=== PATIENT | male | born 1960 | race Caucasian/White ===

== ENCOUNTER 2025-02-07 10:55 | Inpatient (IN) | payer OTHER ==
[~2025-02-07] VITALS: Ht 177.8 cm; Wt 100.0 kg
[2025-02-07 11:18] LABS: Basophils # (auto) 0 10 ^3/uL (0-0.2); Basophils % (auto) 0.5 % (0.0-2.0); Eosinophils # (auto) 0.1 10 ^3/uL (0-0.8); Eosinophils % (auto) 1.6 % (0.0-7.0); Hemoglobin 14.6 g/dL (13.5-17.5); Lymphocytes # (auto) 0.9 10 ^3/uL (0.4-5.4); Lymphocytes % (auto) 10.7 % (10.0-50.0); Mean Corpuscular Hemoglobin 31.9 pg (28.0-32.0); Mean Corpuscular Hgb Conc. 35.6 g/dL (32.0-36.0); Mean Corpuscular Volume 89.4 fL (80.0-100.0); Monocytes % (auto) 11.8 % (0.0-12.0); Neutrophils # (auto) 6.6 10 ^3/uL (1.6-8.6); Neutrophils % (auto) 75.4 % (37.0-80.0); Nucleated Red Blood Cells % 0.1 %; Platelet Count (auto) 231 10^3/uL (140-450); Red Blood Cells 4.59 10^6/uL (4.5-5.90); Red Cell Distribution Width 12.6 % (11.8-14.3); White Blood Cell 8.8 10^3/uL (4.4-10.8)
--- NOTE | 2025-02-07 11:24 | ED.PDOC ---
GI ASSESSMENT HPI Comments 64 y/o M, presents to the ED for CC of flu-like symptoms. Patient states, he has been experiencing Flu-like symptoms which include nausea, sweats, chills and headache onset, last night (02/06/21). Patient denies change in diet, recent travel, fever, diarrhea, or vomiting. No other symptoms or modifying factors present at this time. Chief Complaint: Nausea/Vomiting Time Seen by MD: 11:18 Reviewed Notes: Nurses Notes, Medications, Allergies Allergies: Coded Allergies: NO KNOWN ALLERGIES (Unverified , 12/15/10) Information Source: Patient Mode of Arrival: Ambulatory Timing: Days Duration: Since onset Prehospital treatment: None Quality: None Vomitus: None Stool: Normal Severity: Moderate Recent: None Recent Hx of: None Pain Location: None Modifying Factors: Nothing Associated sign and symptoms: Nausea Past Medical History PAST MEDICAL HISTORY: Cancer Surgical History: Denies all surgeries Family History Family History: Unknown, Family hx of DM, Family hx of Cancer Social History Smoker: Non-Smoker Alcohol: Denies ETOH Use Drugs: Denies Drug Use Lives In: Home Constitutional: denies: chills, diaphoresis, fatigue, fever, malaise, sweats, weakness, others EENTM: denies: blurred vision, double vision, ear bleeding, ear discharge, ear drainage, ear pain, ear ringing, eye pain, eye redness, hearing loss, mouth pain, mouth swelling, nasal discharge, nose bleeding, nose congestion, nose pain, photophobia, tearing, throat pain, throat swelling, voice changes, others Respiratory: denies: cough, hemoptysis, orthopnea, SOB at rest, shortness of breath, SOB with excertion, stridor, wheezing, others Cardiovascular: denies: chest pain, dizzy spells, diaphoresis, Dyspnea on exertion, edema, irregular heart beat, left arm pain, lightheadedness, palpitations, PND, syncope, others Gastrointestinal: reports: nausea; denies: abdomen distended, abdominal pain, blood streaked bowels, constipated, diarrhea, dysphagia, difficulty swallowing, hematemesis, melena, poor appetite, poor fluid intake, rectal bleeding, rectal pain, vomiting, others Genitourinary: denies: burning, dysuria, flank pain, frequency, hematuria, incontinence, penile discharge, penile sore, pain, testicle pain, testicle swelling, urgency, others Neurological: reports: headache; denies: dizziness, fainting, left sided numbness, left sided weakness, numbness, paresthesia, pre-existing deficit, right sided numbness, right sided weakness, seizure, speech problems, tingling, tremors, weakness, others Musculoskeletal: denies: back pain, gout, joint pain, joint swelling, muscle pain, muscle stiffness, neck pain, others Integumetry: denies: bruises, change in color, change in hair/nails, dryness, laceration, lesions, lumps, rash, wounds, others Allergic/Immunocompromised: denies: Difficulty Healing, Frequent Infections, Hives, Itching, others Hematologic/Lymphatic: denies: anemia, blood clots, easy bleeding, easy bruising, swollen glands, others Endocrine: denies: excessive hunger, excessive sweating, excessive thirst, excessive urination, flushing, intolerance to cold, intolerance to heat, unexplained weight gain, unexplained weight loss, others Psychiatric: denies: anxiety, bipolar disorder, depression, hopeless, panic disorder, schizophrenia, sleepless, suicidal, others All Other Systems: Reviewed and Negative Physical Exam General Appearance: Moderate Distress HEENT: Normal ENT Inspection, Pharynx Normal, TMs Normal Neck: Full Range of Motion, Non-Tender, Normal, Normal Inspection Respiratory: Chest Non-Tender, Lungs Clear, No Accessory Muscle Use, No Respiratory Distress, Normal Breath Sounds Cardiovascular: No Edema, No JVD, No Murmur, No Gallop, Normal Peripheral Pulses, Regular Rate/Rhythm Breast Exam: Deferred Gastrointestinal: Diffuse, No Organomegaly, No Pulsatile Mass, Normal Bowel Sounds, Soft, Tenderness Genitalia: Deferred Pelvic: Deferred Rectal: Deferred Extremities: No calf tenderness, Normal capillary refill, Normal inspection, Normal range of motion, Non-tender, No pedal edema Musculoskeletal : Apperance: Normal Neurologic: Alert, 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 Was a procedure done?: No GI differential Dx Differential Diagnosis: Pancreatitis, Electrolyte Imbalance, Bacterial, Viral, Other (COVID, INFLUENZA, PNEUMONIA) X-Ray, Labs, Meds, VS Vital Signs Date Time Temp Pulse Resp B/P (MAP) Pulse Ox O2 Delivery O2 Flow Rate FiO2 02/07/25 12:55 99.4 67 18 133/77 (95) 95 99.4 02/07/25 12:12 72 02/07/25 11:06 98.4 70 20 133/80 (97) 96 98.4 02/07/25 11:06 72 Lab Test 02/07/25 13:09 02/07/25 12:13 02/07/25 12:08 02/07/25 11:08 Range/Units Troponin I High Sensitivity < 3 L < 3 L </=54 ng/L Urine Color Yellow Yellow Urine Clarity Clear Clear Urine pH 5.5 5.0-9.0 Urine Specific [place] 1.022 1.001-1.035 Urine Protein Negative Negative Urine Ketones Negative Negative Urine Blood Negative Negative /uL Urine Nitrite Negative Negative Urine Bilirubin Negative Negative Urine Urobilinogen Normal Negative mg/dL Urine Leukocyte Esterase Negative Negative /uL Urine RBC 1 0 - 3 /hpf Urine Microscopic WBC 1 0-3 /HPF Urine Squamous Epithelial Cells Few <5 /hpf Urine Bacteria None seen None Seen /hpf Urine Mucus Few None Seen Urine Glucose Trace Normal mg/dL SARS-CoV-2 Antigen (Rapid) Negative NEGATIVE White Blood Count 8.8 4.4-10.8 10^3/uL Red Blood Count 4.59 4.5-5.90 10^6/uL Hemoglobin 14.6 13.5-17.5 g/dL Hematocrit 41.0 41.0-53.0 % Mean Corpuscular Volume 89.4 80.0-100.0 fL Mean Corpuscular Hemoglobin 31.9 28.0-32.0 pg Mean Corpuscular Hemoglobin Concent 35.6 32.0-36.0 g/dL Red Cell Distribution Width 12.6 11.8-14.3 % Platelet Count 231 140-450 10^3/uL Mean Platelet Volume 7.7 6.9-10.8 fL Neutrophils (%) (Auto) 75.4 37.0-80.0 % Lymphocytes (%) (Auto) 10.7 10.0-50.0 % Monocytes (%) (Auto) 11.8 0.0-12.0 % Eosinophils (%) (Auto) 1.6 0.0-7.0 % Basophils (%) (Auto) 0.5 0.0-2.0 % Neutrophils # (Auto) 6.6 1.6-8.6 10 ^3/uL Lymphocytes # (Auto) 0.9 0.4-5.4 10 ^3/uL Monocytes # (Auto) 1.0 0-1.3 10 ^3/uL Eosinophils # (Auto) 0.1 0-0.8 10 ^3/uL Basophils # (Auto) 0 0-0.2 10 ^3/uL Nucleated Red Blood Cells 0.1 % Sodium Level 139 136-145 mmol/L Potassium Level 3.9 3.5-5.1 mmol/L Chloride Level 106 98-107 mmol/L Carbon Dioxide Level 26 20-31 mmol/L Anion Gap 7 5-15 Blood Urea Nitrogen 11 9-23 mg/dL Creatinine 0.89 0.700-1.30 mg/dL Glomerular Filtration Rate Calc 95 >90 mL/min BUN/Creatinine Ratio 12.4 10.0-20.0 Serum Glucose 138 H 74-106 mg/dL Calcium Level 9.9 8.7-10.4 mg/dL Current Medications Medications (Trade) Dose Ordered Sig/Cuco Route Start Time Stop Time Status Last Admin Ondansetron HCl (Zofran) 4 mg ONCE ONCE IV 02/07/25 11:30 02/07/25 11:31 DC 02/07/25 12:35 Sodium Chloride 1,000 ml @ 1,000 mls/hr Q1H ONCE IV 02/07/25 11:30 02/07/25 12:29 DC 02/07/25 12:34 CAT scan of the abdomen and pelvis is within normal limits. The CAT scan of the head shows paranasal sinusitis At this time, the patient's CBC is within normal limits The chemistry panel is within normal limits The patient was given Zofran 4 mg IV push for the nausea The patient was given a 1 L bolus of normal saline At this time, the patient continues to have symptoms of pain so the patient is being admitted to the hospitalist The COVID test is negative Images Reviewed?: Images reviewed and evaluated by me Time of 1ST Reevaluation: 11:48 Reevaluation 1ST: Unchanged Patient Education/Counseling: Diagnosis, Treatment, Prognosis Family Education/Counseling: No Family Present SEPSIS Sepsis Screen Date sepsis recognized/suspect: Feb 07, 2025 Time Sepsis recognized/suspect: 1109 Recent Procedure: No On Antibiotic Therapy: No Respiratory Rate >20: No Heart Rate >90: No Temp<36 C (96.8 F) or >38.3 C: No SBP <90 or MAP <65 mmHG: No New Acute Mental Status Change: No Is the patient on CPAP, BIPAP,: No Orders/Vitals/Labs Physician Orders Electrocardigram (02/07/25 11:05) Troponin-I Hs (02/07/25 14:05) Electrocardigram (02/07/25 12:05) Electrocardigram (02/07/25 14:05) Heplock Iv (02/07/25 ) Ct Ab Pel Wo Con-No Oral Or Iv (02/07/25 13:01) Head Without Contrast (02/07/25 13:01) Vital Signs Date Time Temp Pulse Resp B/P (MAP) Pulse Ox O2 Delivery O2 Flow Rate FiO2 02/07/25 12:55 99.4 67 18 133/77 (95) 95 99.4 02/07/25 12:12 72 02/07/25 11:06 98.4 70 20 133/80 (97) 96 98.4 02/07/25 11:06 72 Laboratory Tests Test 02/07/25 11:08 White Blood Count 8.8 10^3/uL (4.4-10.8) Medications Medications Dose Ordered Sig/Cuco Route Start Time Stop Time Status Last Admin Dose Admin Ondansetron HCl 4 mg ONCE ONCE IV 02/07/25 11:30 02/07/25 11:31 DC 02/07/25 12:35 Sodium Chloride 1,000 ml @ 1,000 mls/hr Q1H ONCE IV 02/07/25 11:30 02/07/25 12:29 DC 02/07/25 12:34 Departure 1 Departure Time of Disposition: 14:02 Impression: Primary Impression: Abdominal pain of unknown etiology Disposition: ADMITTED INPATIENT Admit to: Med Surg Condition: Fair Critical Care Note Critical Care Time?: No Stability Stability form required: No Heart Score Heart Score: Heart Score Response (Comments) Value History N/A 0 EKG N/A 0 Age N/A 0 Risk Factors N/A 0 Troponin N/A 0 Total 0 I personally scribed for FRED MOCK MD ([email or web address]) on 02/07/25 at 11:24. Electronically submitted by Rachel South ([email or web address]). I personally scribed for FRED MOCK MD ([email or web address]) on 02/07/25 at 12:12. Electronically submitted by Rachel South ([email or web address]). FRED MOCK MD Feb 07, 2025 11:24
[2025-02-07 11:27] LABS: Chloride 106 mmol/L (98-107); Potassium 3.9 mmol/L (3.5-5.1); Sodium 139 mmol/L (136-145)
[2025-02-07 11:29] LABS: Calcium 9.9 mg/dL (8.7-10.4)
[2025-02-07 11:33] LABS: BUN/Creatinine Ratio 12.4 (10.0-20.0); Blood Urea Nitrogen 11 mg/dL (9-23)
[2025-02-07 11:39] LABS: Glucose 138 mg/dL (74-106)
[2025-02-07 11:45] LABS: Anion Gap 7 (5-15); Carbon Dioxide 26 mmol/L (20-31)
[2025-02-07 12:23] LABS: Urine Bacteria None Seen /hpf (None Seen)
[2025-02-07 12:29] LABS: Urine Blood Negative /uL (Negative); Urine Clarity Clear (Clear); Urine Color Yellow (Yellow); Urine Mucus FEW (None Seen); Urine Protein, UAD Negative (Negative); Urine Specific Gravity 1.022 (1.001-1.035); Urine Squamous Epithelial Cell FEW /hpf (<5); Urine Urobilinogen Normal (Negative); Urine WBC 1 /HPF (0-3); Urine pH 5.5 (5.0-9.0)
[2025-02-07] MEDS: SODIUM CHLORIDE 0.9% 1,000 ML IV ONE (12:34)
[2025-02-07] MEDS: ONDANSETRON HCL 4 MG/2 ML VIAL IV ONE (12:35)
[2025-02-07 12:45] LABS: COVID19 ANTIGEN SOFIA FIA NEGATIVE (NEGATIVE)
--- NOTE | 2025-02-07 13:55 | DVH ---
CT HEAD WITHOUT CONTRAST INDICATION: DRAKE EXAM DATE: 02/07/2025 01:19 PM COMPARISON: None RADIATION DOSE: CTDIvol: 58.05 mGy, DLP: 1046.69 mGy*cm PROCEDURE: CT scans of the head were obtained from the vertex to the skull base. Sagittal and coronal reconstructions were provided. All CT scans at this medical facility are performed using dose modulation techniques as appropriate t o a performed exam including the following: Automated exposure control was utilized; adjustment of th e MA and/or KV according to patient size; and use of iterative reconstruction technique. FINDINGS: There is sulcal and ventricular prominence. The brainshows normal morphology and sylvester-whi te matter differentiation, without intracranial hemorrhage, extra-axial fluid collection, mass effect or acute large vessel infarct. The ventricles are normal in size. The basal cisterns are patent. The skull and visible facial bones are intact. The paranasal sinuses are opacified. The mastoid air cell s and middle ear cavities are well-aerated. The soft tissues of the scalp are unremarkable. IMPRESSION: Paranasal sinusitis. No acute intracranial abnormality.
--- NOTE | 2025-02-07 13:56 | DVH ---
CT abdomen and pelvis without contrast INDICATION: pain TECHNIQUE: Serial axial images were performed through the abdomen and pelvis and then reformatted in the sagittal and coronal plane. All CT scans at this medical facility are performed using dose modula tion techniques as appropriate to a performed exam including the following: Automated exposure contro l was utilized; adjustment of the MA and/or KvP according to patient size; and use of iterative recon struction technique. FINDINGS: Liver and spleen are normal in size without focal mass. No renal masses, stones or hydronep hrosis. No masses or enlargement of the adrenal glands or pancreas. No biliary dilatation. No gallsto ty. No distention of bowel loops to suggest mechanical obstruction of bowel. The appendix is normal in appearance. No free fluid. Within the pelvis, bladder is smooth walled without stones. No abnormal masses or fluid collections. IMPRESSION: 1. No acute pathology in the abdomen pelvis. Note made that study is severely limited in evaluation o f bowel pathology by lack of IV and oral contrast Computed Tomographic Radiation Dosimetry Report: Total CTDI vol = 11.9mGy Total DLP = 688.78mGy-cm Lo w dose protocols were performed.
[2025-02-07 16:12] VITALS: PULSE 89; RESP 16; O2SAT 95
[2025-02-07] MEDS ORDERED: SIMV10TA20 PO (16:40)
[2025-02-07] MEDS ORDERED: LISI10TA34 PO (16:40)
[2025-02-07] MEDS ORDERED: GABA-1250 PO (16:40)
[2025-02-07] MEDS ORDERED: ASPI1TAB20 PO (16:40)
[2025-02-07] MEDS ORDERED: METF750T54 PO (16:40)
[2025-02-07] MEDS ORDERED: DEXTROSE (50%) 50ML SYRG IV PRN (16:45)
[2025-02-07] MEDS ORDERED: HYDROcodone-ACET 5/325MG TAB PO PRN (16:45)
[2025-02-07] MEDS ORDERED: DOCUSATE SOD 100 MG CAP PO PRN (16:45)
[2025-02-07] MEDS ORDERED: ONDANSETRON HCL 4 MG/2 ML VIAL IV PRN (16:45)
[2025-02-07] MEDS: InsuLIN REG 1unit/0.01ml Soln (100units/ml) SC SCH (17:00)
[2025-02-07] MEDS: ACCU-CHEK COMFORT CURVE STRIP VI SCH (17:00)
[2025-02-07] MEDS: MORPHINE SULFATE 4 MG/ML SYR/VIAL IV ONE (17:01)
[2025-02-07] MEDS: PANTOPRAZOLE 40 MG/10 ML VIAL INJ IV ONE (17:01)
--- NOTE | 2025-02-07 17:04 | DVHHP2 ---
History of Present Illness Reason for Visit: Nausea and vomiting History of Present Illness Thomas Galvan is a 64-year-old male with past medical history of prostate cancer, diabetes, hypertension, and hyperlipidemia, who came in for abdominal pain and nausea. Patient states he has had a headache for 1 week, started experi encing nausea yesterday. Woke up this morning drenched in sweat, with chills, nausea, and headache. He states he went to work this morning but had to leave early and came to the hospital due to feeling so bad. He also states he is having fatigue and weakness. Cardiovascular: HTN, hyperipidemia Endocrine: Diabetes Past Surgical History: Other (Prostate), Total knee replacement (left) Smoke: No ALCOHOL: none Drugs: None Lives: with Family Domestic Violence: Neg Review of Systems Constitutional: Yes: Fever, Chills, Sweats, Malaise; No: Weakness, Other Eyes: No: Pain, Vision change, Conjunctivae inflammation, Eyelid inflammation, Other, Redness ENT: No: Ear pain, Ear discharge, Nose pain, Nose discharge, Nose congestion, Mouth pain, Mouth swelling, Throat pain, Throat swelling, Other Respiratory: No: Cough, Dry, Shortness of breath, SOB with excertion, Wheezing, Hemoptysis, Pleuritic Pain, Sputum, Wheezing, Other Cardiovascular: No: Chest Pain, Palpitations, Orthopnea, Paroxysmal Noc. Dyspnea, Edema, Lt Headedness, Other Gastrointestinal: Nausea, Abdominal Pain; No: Vomiting, Diarrhea, Constipation, Melena, Hematochezia, Other Genitourinary: No Dysuria, No Frequency, No Incontinence, No Hematuria, No Retention, No Other Musculoskeletal: No: other, neck pain, shoulder pain, arm pain, back pain, hand pain, leg pain, foot pain Skin: No: Rash, Lesions, Jaundice, Bruising, Other Neurological: No: Weakness, Numbness, Incoordination, Change in speech, Confusion, Seizures, Other Allergies: Coded Allergies: NO KNOWN ALLERGIES (Unverified , 12/15/10) Exam Vital Signs Vital Signs Date Time Temp Pulse Resp B/P (MAP) Pulse Ox O2 Delivery O2 Flow Rate FiO2 02/07/25 16:12 89 16 95 Room Air* 0 21 02/07/25 16:00 99.5 126/71 (89) 99.5 General Appearance: Alert, Oriented X3, Cooperative, mild distress HEENT: Atraumatic, PERRLA Respiratory: Clear to auscultation Cardiovascular: Regular rate, Normal S1, Normal S2, No murmurs Abdominal: Normal bowel sounds, Soft, Other (C/O difuse abdominal pain) Extremities: No clubbing, No cyanosis, No edema, Normal pulses, No tenderness/swelling Skin: No rashes, No breakdown, No significant lesion Neuro: Normal gait, Normal speech, Strength at 5/5 X4 ext Psych/Mental Status: Mental status NL, Mood NL Labs/Xrays Labs Test 02/07/25 15:56 02/07/25 13:09 02/07/25 12:13 02/07/25 12:08 Range/Units POC Glucose 121 H 70-106 mg/dl Troponin I High Sensitivity < 3 L </=54 ng/L Urine Color Yellow Yellow Urine Clarity Clear Clear Urine pH 5.5 5.0-9.0 Urine Specific [place] 1.022 1.001-1.035 Urine Protein Negative Negative Urine Ketones Negative Negative Urine Blood Negative Negative /uL Urine Nitrite Negative Negative Urine Bilirubin Negative Negative Urine Urobilinogen Normal Negative mg/dL Urine Leukocyte Esterase Negative Negative /uL Urine RBC 1 0 - 3 /hpf Urine Microscopic WBC 1 0-3 /HPF Urine Squamous Epithelial Cells Few <5 /hpf Urine Bacteria None seen None Seen /hpf Urine Mucus Few None Seen Urine Glucose Trace Normal mg/dL SARS-CoV-2 Antigen (Rapid) Negative NEGATIVE Test 02/07/25 11:08 Range/Units White Blood Count 8.8 4.4-10.8 10^3/uL Red Blood Count 4.59 4.5-5.90 10^6/uL Hemoglobin 14.6 13.5-17.5 g/dL Hematocrit 41.0 41.0-53.0 % Mean Corpuscular Volume 89.4 80.0-100.0 fL Mean Corpuscular Hemoglobin 31.9 28.0-32.0 pg Mean Corpuscular Hemoglobin Concent 35.6 32.0-36.0 g/dL Red Cell Distribution Width 12.6 11.8-14.3 % Platelet Count 231 140-450 10^3/uL Mean Platelet Volume 7.7 6.9-10.8 fL Neutrophils (%) (Auto) 75.4 37.0-80.0 % Lymphocytes (%) (Auto) 10.7 10.0-50.0 % Monocytes (%) (Auto) 11.8 0.0-12.0 % Eosinophils (%) (Auto) 1.6 0.0-7.0 % Basophils (%) (Auto) 0.5 0.0-2.0 % Neutrophils # (Auto) 6.6 1.6-8.6 10 ^3/uL Lymphocytes # (Auto) 0.9 0.4-5.4 10 ^3/uL Monocytes # (Auto) 1.0 0-1.3 10 ^3/uL Eosinophils # (Auto) 0.1 0-0.8 10 ^3/uL Basophils # (Auto) 0 0-0.2 10 ^3/uL Nucleated Red Blood Cells 0.1 % Sodium Level 139 136-145 mmol/L Potassium Level 3.9 3.5-5.1 mmol/L Chloride Level 106 98-107 mmol/L Carbon Dioxide Level 26 20-31 mmol/L Anion Gap 7 5-15 Blood Urea Nitrogen 11 9-23 mg/dL Creatinine 0.89 0.700-1.30 mg/dL Glomerular Filtration Rate Calc 95 >90 mL/min BUN/Creatinine Ratio 12.4 10.0-20.0 Serum Glucose 138 H 74-106 mg/dL Calcium Level 9.9 8.7-10.4 mg/dL CT abdomen and pelvis without contrast FINDINGS: Liver and spleen are normal in size without focal mass. No renal masses, stones or hydronephrosis. No masses or enlargement of the adrenal glands or pancreas. No biliary dilatation. No gallstones. No distention of bowel loops to suggest mechanical obstruction of bowel. The appendix is normal in appearance. No free fluid. Within the pelvis, bladder is smooth walled without stones. No abnormal masses or fluid collections. IMPRESSION: 1. No acute pathology in the abdomen pelvis. Note made that study is severely limited in evaluation of bowel pathology by lack of IV and oral contrast CT HEAD WITHOUT CONTRAST FINDINGS: There is sulcal and ventricular prominence. The brainshows normal morphology and sylvester-white matter differentiation, without intracranial hemorrhage, extra-axial fluid collection, mass effect or acute large vessel infarct. The ventricles are normal in size. The basal cisterns are patent. The skull and visible facial bones are intact. The paranasal sinuses are opacified. The mastoid air cells and middle ear cavities are well-aerated. The soft tissues of the scalp are unremarkable. IMPRESSION: Paranasal sinusitis. Assessment/Plan Assessment/Plan Assessment: Flu-like symptoms, Intractable nausea and vomiting, Diabetes, Hypertension, Hyperlipidemia, Plan: Admit to Med-Surg, IV antibiotics, IV hydration, Antiemetics, Tylenol as needed for fever, Accu checks Q AC&HS with sliding scale, Home medications reconciled, Plan discussed with: Patient My Orders Orders - JF DHILLON Procedure Category Date Status Time Admit ADMIT 02/07/25 Verified 16:37 Code Status CODE 02/07/25 Verified 16:37 2 Gm Sodium Diet DIET 02/07/25 Verified Dinner Hydrocodone-Acet PHA 02/07/25 Verified 5/325mg Tab ([place] 16:45 Ondansetron Hcl PHA 02/07/25 Verified (Zofran) 16:45 Docusate Sodium PHA 02/07/25 Verified Capsule ([place] 16:45 Complete Blood Count LAB 02/08/25 Verified 04:00 Comprehensive LAB 02/08/25 Verified Metabolic Panel 04:00 Condition: Serious MARIANO 02/07/25 Verified 16:37 Acetaminophen Tablet PHA 02/07/25 Verified (Tylenol Tablet) 16:45 Date of Service: Feb 07, 2025 Billing Provider: JF DHILLON Common Visit Codes: [id number] INP/OBS CARE (MOD) JF DHILLON Feb 07, 2025 17:04
[2025-02-07 18:43] VITALS: BP 127/71; PULSE 85; RESP 19; TEMP 98.7; O2SAT 85
[2025-02-07 20:00] VITALS: BP 106/61; PULSE 82; RESP 17; TEMP 98.6; O2SAT 93
[2025-02-07] MEDS: ACETAMINOPHEN 325 MG TAB PO PRN (20:38)
[2025-02-07 21:00] VITALS: BP 106/61; PULSE 82; RESP 17; TEMP 98.9; O2SAT 93
[2025-02-08] VITALS (7 sets, daily range): BP systolic 113–136; BP diastolic 65–84; PULSE 66–77; RESP 17–18; TEMP 36.7; O2SAT 95–96
[2025-02-08 04:38] LABS: Basophils # (auto) 0 10 ^3/uL (0-0.2); Basophils % (auto) 0.5 % (0.0-2.0); Eosinophils # (auto) 0.2 10 ^3/uL (0-0.8); Eosinophils % (auto) 1.9 % (0.0-7.0); Hematocrit 40.1 % (41.0-53.0); Lymphocytes # (auto) 1.1 10 ^3/uL (0.4-5.4); Mean Corpuscular Hgb Conc. 34.8 g/dL (32.0-36.0); Mean Corpuscular Volume 89.2 fL (80.0-100.0); Monocytes # (auto) 1.3 10 ^3/uL (0-1.3); Monocytes % (auto) 15.6 % (0.0-12.0); Neutrophils # (auto) 5.7 10 ^3/uL (1.6-8.6); Nucleated Red Blood Cells % 0.1 %; Platelet Count (auto) 223 10^3/uL (140-450); Red Cell Distribution Width 12.6 % (11.8-14.3); White Blood Cell 8.2 10^3/uL (4.4-10.8)
[2025-02-08 04:55] LABS: Alanine Aminotransferase 15 U/L (7-40); Albumin 3.9 g/dL (3.2-4.8); Alkaline Phosphatase 72 U/L (46-116); Anion Gap 9 (5-15); Aspartate Aminotransferase 12 U/L (<34); BUN/Creatinine Ratio 11.8 (10.0-20.0); Blood Urea Nitrogen 10 mg/dL (9-23); Calcium 8.8 mg/dL (8.7-10.4); Carbon Dioxide 25 mmol/L (20-31); Chloride 105 mmol/L (98-107); Potassium 3.8 mmol/L (3.5-5.1); Sodium 139 mmol/L (136-145); Total Protein 6.4 g/dL (5.7-8.2)
[2025-02-08 04:56] LABS: Bilirubin, Total 1.6 mg/dL (0.2-1.0); Glucose 123 mg/dL (74-106)
[2025-02-08] MEDS: ASPirin-EC 81 mg tab PO SCH (09:22)
[2025-02-08] MEDS: LISINOPRIL 5 MG TAB PO SCH (09:23)
[2025-02-08] MEDS: GABAPENTIN 300 MG CAP PO SCH (10:00)
--- NOTE | 2025-02-08 14:17 | ECG ---
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
--- NOTE | 2025-02-08 16:14 | DVHDS2 ---
Discharge Summary Date of Admission Feb 07, 2025 at 16:37 Date of Discharge: Feb 08, 2025 Admitting Diagnosis INTRACTABLE NAUSEA AND VOMITING Labs/Diagnostic Data: Laboratory Results Test 02/08/25 11:22 02/08/25 03:32 02/07/25 17:00 02/07/25 13:09 POC Glucose 196 mg/dl (70-106) White Blood Count 8.2 10^3/uL (4.4-10.8) Red Blood Count 4.50 10^6/uL (4.5-5.90) Hemoglobin 14.0 g/dL (13.5-17.5) Hematocrit 40.1 % (41.0-53.0) Mean Corpuscular Volume 89.2 fL (80.0-100.0) Mean Corpuscular Hemoglobin 31.0 pg (28.0-32.0) Mean Corpuscular Hemoglobin Concent 34.8 g/dL (32.0-36.0) Red Cell Distribution Width 12.6 % (11.8-14.3) Platelet Count 223 10^3/uL (140-450) Mean Platelet Volume 7.9 fL (6.9-10.8) Neutrophils (%) (Auto) 69.0 % (37.0-80.0) Lymphocytes (%) (Auto) 13.0 % (10.0-50.0) Monocytes (%) (Auto) 15.6 % (0.0-12.0) Eosinophils (%) (Auto) 1.9 % (0.0-7.0) Basophils (%) (Auto) 0.5 % (0.0-2.0) Neutrophils # (Auto) 5.7 10 ^3/uL (1.6-8.6) Lymphocytes # (Auto) 1.1 10 ^3/uL (0.4-5.4) Monocytes # (Auto) 1.3 10 ^3/uL (0-1.3) Eosinophils # (Auto) 0.2 10 ^3/uL (0-0.8) Basophils # (Auto) 0 10 ^3/uL (0-0.2) Nucleated Red Blood Cells 0.1 % Sodium Level 139 mmol/L (136-145) Potassium Level 3.8 mmol/L (3.5-5.1) Chloride Level 105 mmol/L (98-107) Carbon Dioxide Level 25 mmol/L (20-31) Anion Gap 9 (5-15) Blood Urea Nitrogen 10 mg/dL (9-23) Creatinine 0.85 mg/dL (0.700-1.30) Glomerular Filtration Rate Calc 96 mL/min (>90) BUN/Creatinine Ratio 11.8 (10.0-20.0) Serum Glucose 123 mg/dL (74-106) Calcium Level 8.8 mg/dL (8.7-10.4) Total Bilirubin 1.6 mg/dL (0.2-1.0) Aspartate Amino Transferase (AST) 12 U/L (<34) Alanine Aminotransferase (ALT) 15 U/L (7-40) Alkaline Phosphatase 72 U/L (46-116) Total Protein 6.4 g/dL (5.7-8.2) Albumin 3.9 g/dL (3.2-4.8) D-Dimer, Quantitative 0.39 mg/L FEU (0.0-0.49) Troponin I High Sensitivity < 3 ng/L (</=54) Test 02/07/25 12:13 02/07/25 12:08 Urine Color Yellow (Yellow) Urine Clarity Clear (Clear) Urine pH 5.5 (5.0-9.0) Urine Specific [place] 1.022 (1.001-1.035) Urine Protein Negative (Negative) Urine Ketones Negative (Negative) Urine Blood Negative /uL (Negative) Urine Nitrite Negative (Negative) Urine Bilirubin Negative (Negative) Urine Urobilinogen Normal mg/dL (Negative) Urine Leukocyte Esterase Negative /uL (Negative) Urine RBC 1 /hpf (0 - 3) Urine Microscopic WBC 1 /HPF (0-3) Urine Squamous Epithelial Cells Few /hpf (<5) Urine Bacteria None seen /hpf (None Seen) Urine Mucus Few (None Seen) Urine Glucose Trace mg/dL (Normal) SARS-CoV-2 Antigen (Rapid) Negative (NEGATIVE) Other Laboratory Tests 02/08/25 03:32 Brief Hx & Hospital Course: History of Present Illness Thomas Galvan is a 64-year-old male with past medical history of prostate cancer, diabetes, hypertension, and hyperlipidemia, who came in for abdominal pain and nausea. Patient states he has had a headache for 1 week, started experiencing nausea yesterday. Woke up this morning drenched in sweat, with chills, nausea, and headache. He states he went to work this morning but had to leave early and came to the hospital due to feeling so bad. He also states he is having fatigue and weakness. Course of hospitalization: Patient had CT scan of the abdomen and pelvis which was essentially unremarkable. Patient had CT scan of the head, which did note paranasal sinusitis. Patient has been afebrile since being admitted to the hospital. He has been ambulating without difficulty. He is tolerating oral intake. Palpation was performed on patient's abdomen which revealed slight epigastric pain. Given improvement with patient's symptoms, patient instructed to follow up his PCP in 1-2 weeks. Patient will be given a trial of Protonix 40 mg p.o. daily for two weeks, as well as being treated for as paranasal sinusitis with Augmentin 500 mg p.o. b.i.d. for seven days. Patient and were notified of plan of care who are agreeable for the discharge plan. All questions answered. Physical examination General: Alert and Oriented x3. No acute distress. Well-nourished. Eyes: EOMI. Anicteric. HENT: Moist mucous membranes. Lungs: Clear to auscultation bilaterally. No accessory muscle use. Cardiovascular: Regular rate and rhythm. No murmur. No JVD. Abdomen: Soft, non-tender and non-distended. No palpable masses. Extremities: No edema. Non-tender. Skin: No rashes or lesions. Warm. Neurologic: No focal neurological deficits. CN II-XII grossly intact, but not individually tested. Psychiatric: Cooperative. Appropriate mood and affect. Total time spent with patient discussing and formulating plan of care: 35 minutes. This medical document was created using an electronic medical record system with [employer] dictation system. Although this document has been carefully reviewed, there may still be some phonetic and typographical errors. These areas are purely typographical due to imperfections of the software programs, and do not reflect any compromise in the patient's medical care. Condition at Discharge: Fair Final Diagnosis/Problems List Abdominal pain, probably due to gastritis. Secondary diagnosis: Primary hypertension Diabetes Dyslipidemia Discharge Disposition: Home Discharge Instruct/Medications Diet: Cardiac 2g Na,low cholest Activity: No Restrictions, As Tolerated Follow Up/Referral: Dr. Garcia in 1 week Medications: Augmentin 500mg po bid x 5 days Protonix 40mg po daily x 14 days 36 Discharge Statement: "Patient was advised to return to the ER or call 911 if any headaches, dizziness, shortness of breath, chest pain, abdominal pain, bleeding, fevers, or worsening of medical condition. Patient was counseled about treatment plan, medications, possible side effects, patientverbalized understanding. All questions were answered to the best of my ability. This discharge took greater then 30 minutes in planning, reviewing documentation, counseling the patient, and discussing with other team members." ASSESSMENT ASSESSMENT Assessment Abdominal pain, probably due to gastritis. Date of Service: Feb 08, 2025 Billing Provider: ELENA ELLSWORTH NP Common Visit Codes: 03227-MSO/OBS DISCH DAY >30min ELENA ELLSWORTH NP Feb 08, 2025 16:14
[2025-02-08] MEDS ORDERED: PANT40TA2 PO (16:16)
[2025-02-08] MEDS ORDERED: AMOX500T86 PO (16:16)
== END 2025-02-08 16:45 | disposition home or self-care (01) | DRG 392 ==
LOC: ER 10:55 → OVERFLOW 16:37
PROVIDERS: ADMIT Nurse Practitioner Acute Care; ATTEND Nurse Practitioner Acute Care
DX: K29.70 Gastritis, unspecified, without bleeding (principal); E11.9 Type 2 diabetes mellitus without complications; I10 Essential (primary) hypertension; E78.5 Hyperlipidemia, unspecified; Z20.822 Contact with and (suspected) exposure to COVID-19; Z96.652 Presence of left artificial knee joint; Z85.46 Personal history of malignant neoplasm of prostate; Z83.3 Family history of diabetes mellitus; Z80.8 Family history of malignant neoplasm of other organs or systems
CPT/HCPCS: 36415; 70450; 74176; 80048; 80053; 81001; 82962; 84484; 85025; 85379; 87426; 93005; 96361; 96374; 96375; G0378; J1815; J2405; J2470